=== PATIENT | female | born 2000 | race Caucasian/White ===

== ENCOUNTER 2019-06-09 20:18 | Outpatient (CLI) | payer BC, OTHER ==
[2019-06-09 21:18] LABS: APPEARANCE,URINE SLIGHTLY-CLOUDY; BILIRUBIN,URINE NEGATIVE (NEGATIVE); COLOR,URINE YELLOW; GLUCOSE, URINE 50 mg/dL (NEGATIVE); KETONES,URINE NEGATIVE (NEGATIVE); LEUKOCYTE ESTERASE,URINE NEGATIVE (NEGATIVE); NITRITE,URINE NEGATIVE (NEGATIVE); PROTEIN,URINE NEGATIVE (NEGATIVE); URINE SPECIFIC GRAVITY 1.018; UROBILINOGEN,URINE NEGATIVE mg/dL (<2.0)
[2019-06-09 21:23] LABS: RBCS (WET MOUNT) NO RBCS SEEN; T.VAGINALIS (WET MOUNT) NO TRICHOMONAS SEEN; WBCS (WET MOUNT) NO WBCS SEEN; YEAST (WET MOUNT) NO YEAST SEEN
[2019-06-09 21:24] LABS: BACTERIA (WET MOUNT) 3+ BACTERIA SEEN
[2019-06-09 21:33] LABS: URINE AMPHETAMINES SCREEN NEGATIVE; URINE BARBITURATES SCREEN NEGATIVE; URINE BENZODIAZEPINES SCREEN NEGATIVE; URINE COCAINE SCREEN NEGATIVE; URINE MARIJUANA (THC) SCREEN NEGATIVE; URINE METHADONE SCREEN NEGATIVE; URINE PHENCYCLIDINE SCREEN NEGATIVE
--- NOTE | 2019-06-09 22:03 | RADIOLOGY REPORT (SQ) ---
US PELVIS EXAM DATE: 06/09/2019 12:00 AM CDT HISTORY: Evaluate cervical length and presentation. COMPARISON: None. TECHNIQUE: Grayscale, color Doppler, and spectral Doppler ultrasound images of the pelvis were obtained. FINDINGS: There is a single live intrauterine fetus in vertex position with a heart rate of 162 bpm. The cervix measures 3.5 cm and is closed. DUY is 14.4 cm. Placenta is posterior. Estimated gestational age is 24 weeks 6 days. IMPRESSION: Single live IUP as above.
[2019-06-09 22:48] LABS: CHLAM PCR NOT DETECTED (NOT DETECT)
== END 2019-06-09 22:43 | disposition home or self-care (01) ==
LOC: LC 20:18
PROVIDERS: ATTEND Student in an Organized Health Care Education/Training Program
PROC: 4A1HXCZ Monitoring of Products of Conception, Cardiac Rate, External Approach (ICD-10-PCS; principal; 2019-06-09)
DX: O47.02 False labor before 37 completed weeks of gestation, second trimester (principal); Z3A.24 24 weeks gestation of pregnancy
CPT/HCPCS: 76815; 80307; 81005; 87210; 87491; 87591

== ENCOUNTER 2019-08-25 21:13 | Outpatient (CLI) | payer BC, OTHER ==
[2019-08-25 22:02] LABS: APPEARANCE,URINE SLIGHTLY-CLOUDY; BILIRUBIN,URINE NEGATIVE (NEGATIVE); COLOR,URINE STRAW; GLUCOSE, URINE >=500 mg/dL (NEGATIVE); KETONES,URINE TRACE mg/dL (NEGATIVE); LEUKOCYTE ESTERASE,URINE SMALL (NEGATIVE); NITRITE,URINE NEGATIVE (NEGATIVE); PROTEIN,URINE NEGATIVE (NEGATIVE); URINE SPECIFIC GRAVITY 1.007; UROBILINOGEN,URINE NEGATIVE mg/dL (<2.0)
[2019-08-25 22:12] LABS: URINE BARBITURATES SCREEN NEGATIVE; URINE BENZODIAZEPINES SCREEN NEGATIVE; URINE COCAINE SCREEN NEGATIVE; URINE MARIJUANA (THC) SCREEN NEGATIVE; URINE METHADONE SCREEN NEGATIVE; URINE PHENCYCLIDINE SCREEN NEGATIVE
[2019-08-25 22:15] LABS: URINE AMPHETAMINES SCREEN NEGATIVE
[2019-08-25] MEDS ORDERED: ONDANSETRON 4 MG TAB.RAPDIS ONE (22:26)
[2019-08-25] MEDS ORDERED: HYDROXYZINE PAMOATE 50 MG CAPSULE ONE (22:26)
[2019-08-25] MEDS ORDERED: ONDANSETRON 4 MG TAB.RAPDIS PO ONE (23:00)
[2019-08-25] MEDS ORDERED: HYDROXYZINE PAMOATE 50 MG CAPSULE PO ONE (23:00)
--- NOTE | 2019-08-25 23:21 | Non Stress Test Report ---
Non Stress Test Datetime Report Generated by CPN: 08/25/2019 23:20 DEMOGRAPHIC EGA NST: 35.2 INDICATION Indication for Study (NST) Other: labor check URINE RESULTS Urine Protein, NST: Negative Urine Ketones - NST: Positive Urine Glucose - NST: Positive Urine Blood - NST: Negative MONITORING Monitor Explained: Monitor Explained; Test Explained; Patient Verbalized Understanding Time on Monitor: 08/25/2019 21:31 Time off Monitor: 08/25/2019 23:10 NST Duration: 99 NST INTERVENTIONS NST Interventions: PO Hydration Physician Notified NST: Pryor BABY A: [id number] BABY A Movement : Present Contraction Frequency : 6-110 FHR Baseline : 125 Accelerations : 15X15 Decelerations : None Variability : Moderate 6-25bpm NST Review: Meets Criteria for Reactive NST NST Review and Verified By : Butch Alvarado RN NST Results: Reactive NST REPORT Report Trigger: Send Report
== END 2019-08-25 23:14 | disposition home or self-care (01) ==
LOC: LC 21:13
PROVIDERS: ATTEND Obstetrics & Gynecology
PROC: 4A1HXCZ Monitoring of Products of Conception, Cardiac Rate, External Approach (ICD-10-PCS; principal; 2019-08-25)
DX: O47.03 False labor before 37 completed weeks of gestation, third trimester (principal); Z3A.35 35 weeks gestation of pregnancy
CPT/HCPCS: 59025; 81001; 80307; S0119

== ENCOUNTER 2019-09-10 18:29 | Outpatient (CLI) | payer BC, OTHER ==
[2019-09-10 19:11] LABS: APPEARANCE,URINE SLIGHTLY-CLOUDY; BILIRUBIN,URINE NEGATIVE (NEGATIVE); COLOR,URINE YELLOW; GLUCOSE, URINE >=500 mg/dL (NEGATIVE); KETONES,URINE 20 mg/dL (NEGATIVE); LEUKOCYTE ESTERASE,URINE NEGATIVE (NEGATIVE); NITRITE,URINE NEGATIVE (NEGATIVE); PROTEIN,URINE NEGATIVE (NEGATIVE); UROBILINOGEN,URINE NEGATIVE mg/dL (<2.0)
--- NOTE | 2019-09-10 20:19 | Non Stress Test Report ---
Non Stress Test Datetime Report Generated by CPN: 09/10/2019 20:19 DEMOGRAPHIC EGA NST: 37.4 INDICATION Indication for Study (NST) Other: Labor Check IUP @ 37.4 MONITORING Monitor Explained: Monitor Explained; Test Explained; Patient Verbalized Understanding Time on Monitor: 09/10/2019 18:52 Time off Monitor: 09/10/2019 19:12 NST Duration: 20 NST INTERVENTIONS NST Interventions: PO Hydration Physician Notified NST: Dr. Kahn BABY A: [id number] BABY A Movement : Present Contraction Frequency : Irregular FHR Baseline : 135 Accelerations : 15X15 Decelerations : None Variability : Moderate 6-25bpm NST Review: Meets Criteria for Reactive NST NST Review and Verified By : Sidra Cruz RN NST Results: Reactive NST REPORT Report Trigger: Send Report
[2019-09-10 20:20] LABS: URINE AMPHETAMINES SCREEN NEGATIVE; URINE BARBITURATES SCREEN NEGATIVE; URINE BENZODIAZEPINES SCREEN NEGATIVE; URINE COCAINE SCREEN NEGATIVE; URINE MARIJUANA (THC) SCREEN NEGATIVE; URINE METHADONE SCREEN NEGATIVE; URINE PHENCYCLIDINE SCREEN NEGATIVE
== END 2019-09-10 20:20 | disposition home or self-care (01) ==
LOC: LC 18:29
PROVIDERS: ATTEND Obstetrics & Gynecology
PROC: 4A1HXCZ Monitoring of Products of Conception, Cardiac Rate, External Approach (ICD-10-PCS; principal; 2019-09-10)
DX: O47.1 False labor at or after 37 completed weeks of gestation (principal); Z3A.37 37 weeks gestation of pregnancy
CPT/HCPCS: 59025; 80307; 81005; 84112

== ENCOUNTER 2019-09-12 19:21 | Outpatient (CLI) | payer BC, OTHER ==
[2019-09-12 19:57] LABS: APPEARANCE,URINE CLEAR; BILIRUBIN,URINE NEGATIVE (NEGATIVE); COLOR,URINE STRAW; GLUCOSE, URINE 50 mg/dL (NEGATIVE); KETONES,URINE NEGATIVE (NEGATIVE); LEUKOCYTE ESTERASE,URINE NEGATIVE (NEGATIVE); NITRITE,URINE NEGATIVE (NEGATIVE); PROTEIN,URINE NEGATIVE (NEGATIVE); URINE SPECIFIC GRAVITY 1.008; UROBILINOGEN,URINE NEGATIVE mg/dL (<2.0)
[2019-09-12 20:21] LABS: URINE AMPHETAMINES SCREEN NEGATIVE; URINE BARBITURATES SCREEN NEGATIVE; URINE BENZODIAZEPINES SCREEN NEGATIVE; URINE COCAINE SCREEN NEGATIVE; URINE MARIJUANA (THC) SCREEN NEGATIVE; URINE METHADONE SCREEN NEGATIVE; URINE PHENCYCLIDINE SCREEN NEGATIVE
--- NOTE | 2019-09-12 21:42 | Non Stress Test Report ---
Non Stress Test Datetime Report Generated by CPN: 09/12/2019 21:42 DEMOGRAPHIC EGA NST: 37.6 INDICATION Indication for Study (NST) Other: Labor check MONITORING Monitor Explained: Monitor Explained; Test Explained; Patient Verbalized Understanding Time on Monitor: 09/12/2019 20:10 Time off Monitor: 09/12/2019 20:40 NST Duration: 30 NST INTERVENTIONS NST Interventions: PO Hydration Physician Notified NST: Dr. Younger BABY A: [id number] BABY A Movement : Present Contraction Frequency : irr FHR Baseline : 135 Accelerations : 15X15 Decelerations : None Variability : Moderate 6-25bpm NST Review: Meets Criteria for Reactive NST NST Review and Verified By : BECCA Thorne NST Results: Reactive NST REPORT Report Trigger: Send Report
== END 2019-09-12 21:34 | disposition home or self-care (01) ==
LOC: LC 19:21
PROVIDERS: ATTEND Obstetrics & Gynecology
PROC: 4A1HXCZ Monitoring of Products of Conception, Cardiac Rate, External Approach (ICD-10-PCS; principal; 2019-09-12)
DX: O47.1 False labor at or after 37 completed weeks of gestation (principal); Z3A.37 37 weeks gestation of pregnancy
CPT/HCPCS: 59025; 81005; 80307; 84112; Q0114

== ENCOUNTER 2019-09-21 08:03 | Inpatient (IN) | payer BC, OTHER ==
[2019-09-21 09:03] LABS: APPEARANCE,URINE CLEAR; BILIRUBIN,URINE NEGATIVE (NEGATIVE); COLOR,URINE YELLOW; GLUCOSE, URINE NEGATIVE (NEGATIVE); KETONES,URINE NEGATIVE (NEGATIVE); LEUKOCYTE ESTERASE,URINE NEGATIVE (NEGATIVE); NITRITE,URINE NEGATIVE (NEGATIVE); PROTEIN,URINE NEGATIVE (NEGATIVE); URINE SPECIFIC GRAVITY 1.012; UROBILINOGEN,URINE NEGATIVE mg/dL (<2.0)
[2019-09-21] MEDS ORDERED: RINGERS SOLUTION,LACTATED 1,000 ML IV ONE (09:13)
[2019-09-21 09:22] LABS: URINE AMPHETAMINES SCREEN NEGATIVE; URINE BARBITURATES SCREEN NEGATIVE; URINE BENZODIAZEPINES SCREEN NEGATIVE; URINE COCAINE SCREEN NEGATIVE; URINE MARIJUANA (THC) SCREEN NEGATIVE; URINE METHADONE SCREEN NEGATIVE; URINE PHENCYCLIDINE SCREEN NEGATIVE
[2019-09-21 10:30] LABS: ABSOLUTE LYMPHOCYTES (AUTO) 1.2 10^3/uL (0.5-4.7); ABSOLUTE MONOCYTES (AUTO) 0.8 10^3/uL (0.1-1.4); ABSOLUTE NEUT (AUTO) 10.4 10^3/uL (1.7-8.2); BASOPHILS % (AUTO) 0.4 % (0-2); EOSINOPHILS % (AUTO) 0.3 % (0-6); HEMATOCRIT 33.5 % (36.0-47.0); LYMPHOCYTES % (AUTO) 9.9 % (13-45); MEAN CORPUSCULAR HGB CONC 32.7 g/dL (32.0-36.0); MEAN CORPUSCULAR VOLUME 79 fl (80-97); MONOCYTES % (AUTO) 6.3 % (3-13); PLATELET COUNT 276 10^3/uL (150-450); RED BLOOD COUNT 4.22 10^6/uL (3.72-5.28); RED CELL DISTRIBUTION WIDTH 17.4 % (11.5-14.0); SEGMENTED NEUTROPHILS % (AUTO) 83.1 % (42-78); TOTAL CELLS COUNTED % (AUTO) 100 %; WHITE BLOOD COUNT 12.5 10^3/uL (4.0-10.5)
--- NOTE | 2019-09-21 13:11 | Admission Physical ---
Datetime Report Generated by CPN: 09/21/2019 13:11 CURRENT ADMISSION Chief Complaint: Uterine Contractions; Suspected Ruptured Membranes Indication for Induction: Not Applicable Admit Impression : Term, Intrauterine ; Ruptured Membranes Admit Impression- Other: early labor Admit Plan: Admit to Unit; Initiate Labor Protocol ALLERGIES Medication Allergies: No Medication Allergies: No Known Allergies (09/12/2019) Latex: No Latex Allergies Food Allergies: cinnamon Environmental Allergies: n/a OBSTETRICAL HISTORY EDC: 09/27/2019 00:00 : 1 Para: 0 Term: 0 : 0 SAB: 0 IAB: 0 Ectopic: 0 Livin Cesareans: 0 VBACs: 0 Multiple Births: 0 Gestational Diabetes: No Rh Sensitization: No Incompetent Cervix: No JANNIE: No Infertility: No ART Treatment: No Uterine Anomaly: No IUGR: No Hx Previous C/S: No Macrosomia: No Hx Loss/Stillborn: No PIH: No Hx : No Placenta Previa/Abruption: No Depression/PP Depression: No PTL/PROM: No Post Hemorrhage: No Current Procedures: Ultrasound Obstetrical History Comments: g1 - current SEE RECORDS Alcohol: No Marijuana : No Cocaine: No Other Illicit Drugs: No Cigarettes: Former Smoker. [id number] MEDICAL HISTORY Diabetes: No Blood Transfusion: No Pulmonary Disease (Asthma, TB): No Breast Disease: No Hypertension: No Bulk Pigment Reducer Surgery: No Heart Disease: No Hosp/Surgery: No Autoimmune Disorder: No Anesthetic Complications: No Kidney Disease: No Abnormal Pap Smear: No Neuro/Epilepsy: No Psychiatric Disorders: No Other Medical Diseases: No Hepatitis/Liver Disease: No Significant Family History: No Varicosities/Phlebitis: No Trauma/Violence : No Thyroid Dysfunction: No INFECTIOUS HISTORY Gonorrhea: No Genital Herpes: No Chlamydia: No Tuberculosis: No Syphilis: No Hepatitis: No HIV/AIDS Exposure: No Rash or Viral Illness: No HPV: No PHYSICAL EXAM General: Normal HEENT: Normal Neurologic: Normal Thyroid: Deferred Heart: Normal Lungs: Normal Breast: Deferred Back: Normal Abdomen: Normal Genitourinary Exam: Normal Extremities: Normal DTRs: Deferred Pelvic Type: Adequate Vital Signs: Reviewed; Within Normal Limits VAGINAL EXAM Dilatation: 1 Effacement: 75 Contraction Comments: q4mins MEMBRANES Pooling: Negative Membranes: Ruptured Amniotic Fluid Color: Clear FETUS A EGA: 39.1 Monitoring: External US FHR- Baseline: 135 Variability: Moderate 6-25bpm Accelerations: 15X15 Decelerations: None FHR Category: Category I Estimated Weight (gm): 3400 Presentation: Vertex Admit Comment: presents with c/o LOF and UC. actim prom positive. Admitted for early labor. GBS negative. P:routine labor care, anticipate PLANS FOR LABOR AND DELIVERY Labor and Delivery: None Pain Management: Epidural Feeding Preference: Formula Benefit of Breast Feed Discussed: Yes Circumcision: Yes INFORMED CONSENT Assignment: Soni Pryor MD Signature: with User ID: [email or web address] : with User ID: [email or web address]
[2019-09-21] MEDS ORDERED: OXYTOCIN/NORMAL SALINE 20 UNIT/1,000 ML RTUINJ IV PRN (17:34)
[2019-09-21] MEDS ORDERED: OXYTOCIN 10 UNIT/ML VIAL ONE (17:43)
[2019-09-21] MEDS ORDERED: OXYTOCIN/NORMAL SALINE 20 UNIT/1,000 ML RTUINJ ONE (17:43)
[2019-09-21] MEDS ORDERED: MISOPROSTOL 0.2 MG TABLET ONE (17:43)
[2019-09-21] MEDS ORDERED: LIDOCAINE 1% INJ-PF (10 MG/ML) 30 ML SDV ONE (17:43)
[2019-09-21] MEDS ORDERED: PHENYLEPHRINE HCL INJ/PF 10 MG/1 ML SDV ONE (18:06)
[2019-09-21] MEDS ORDERED: FENTANYL/BUPIVACAINE/NS/PF 300 MCG/150 ML RTUINJ EPI ONE (18:07)
[2019-09-21] MEDS ORDERED: BUPIVACAINE HCL 0.25 % INJ/PF (2.5 MG/1 ML) 30 ML VIAL ONE (18:07)
[2019-09-21] MEDS ORDERED: FENTANYL CITRATE INJ/PF 100 MCG/2 ML AMPUL ONE (18:07)
[2019-09-21] MEDS ORDERED: EPHEDRINE SULFATE INJ 50 MG/1 ML AMPULE ONE (18:07)
[2019-09-21] MEDS ORDERED: PROMETHAZINE HCL INJ 25 MG/1 ML VIAL IV ONE (20:56)
[2019-09-21] MEDS ORDERED: PROMETHAZINE HCL INJ 25 MG/1 ML VIAL ONE (20:59)
[2019-09-21] MEDS ORDERED: LIDOCAINE 1.5%/EPINEPHRINE INJ 5 ML AMP ONE (22:24)
[2019-09-21] MEDS ORDERED: SODIUM BICARBONATE 8.4% INJ 50 MEQ/50 ML DISP.SYRIN ONE (22:24)
[2019-09-21] MEDS ORDERED: LIDOCAINE 2%/EPINEPHRINE INJ 20 ML VIAL ONE (22:25)
[2019-09-22] MEDS ORDERED: ACETAMINOPHEN 325 MG TABLET ONE (00:10)
[2019-09-22] MEDS ORDERED: AMPICILLIN SOD INJ 2 GM VIAL ONE ×3 (00:10→09:04)
[2019-09-22] MEDS ORDERED: ACETAMINOPHEN 325 MG TABLET PO ONE (00:15)
[2019-09-22] MEDS: AMPICILLIN SOD INJ 2 GM VIAL IV SCH ×2 (00:20→06:22)
[2019-09-22] MEDS ORDERED: LIDOCAINE 1.5%/EPINEPHRINE INJ 5 ML AMP ONE (01:12)
[2019-09-22] MEDS ORDERED: SODIUM BICARBONATE 8.4% INJ 50 MEQ/50 ML DISP.SYRIN ONE (01:12)
[2019-09-22] MEDS ORDERED: MORPHINE SULFATE 10 MG/ML INJ ONE (02:06)
[2019-09-22] MEDS: MORPHINE SULFATE 10 MG/ML INJ IV ONE ×2 (02:18→05:25)
[2019-09-22] MEDS ORDERED: ACETAMINOPHEN WITH CODEINE #3 TABLET ONE (03:54)
[2019-09-22] MEDS ORDERED: ZOLPIDEM TARTRATE 5 MG TABLET PO PRN (03:58)
[2019-09-22] MEDS ORDERED: PSEUDOEPHEDRINE HCL 30 MG TABLET PO PRN (03:58)
[2019-09-22] MEDS ORDERED: BENZOCAINE/MENTHOL AEROSOL SPRAY 56 ML TOP PRN (03:58)
[2019-09-22] MEDS ORDERED: GLYCERIN/WITCH HAZEL LEAF 1 EACH MED..WIPE TP PRN (03:58)
[2019-09-22] MEDS ORDERED: ACETAMINOPHEN WITH CODEINE #3 TABLET PO PRN ×2 (03:58)
[2019-09-22] MEDS ORDERED: MEASLES,MUMPS&RUBELLA VACC/PF 0.5 ML VIAL SUBCUT PRN (03:58)
[2019-09-22] MEDS ORDERED: PROMETHAZINE HCL INJ 25 MG/1 ML VIAL IV PRN (03:58)
[2019-09-22] MEDS ORDERED: OXYTOCIN/NORMAL SALINE 20 UNIT/1,000 ML RTUINJ IV PRN (03:58)
[2019-09-22] MEDS ORDERED: DIPH/PERTUSS(ACELL)/TETANUS VAC/PF 0.5 ML SYR (>=10YO) IM PRN (03:58)
[2019-09-22] MEDS ORDERED: NA PHOS,M-B/NA PHOS,DI-BA (ADULT) 133 ML ENEMA PR PRN (03:58)
[2019-09-22] MEDS ORDERED: ACETAMINOPHEN 650 MG SUPP.RECT PR PRN (03:58)
[2019-09-22] MEDS ORDERED: PROMETHAZINE HCL 25 MG SUPP.RECT PR PRN (03:58)
[2019-09-22] MEDS ORDERED: MAGNESIUM HYDROXIDE SUSP 30 ML UDCUP PO PRN (03:58)
[2019-09-22] MEDS ORDERED: PROMETHAZINE HCL 25 MG TABLET PO PRN (03:58)
[2019-09-22] MEDS ORDERED: DIPHENHYDRAMINE HCL 25 MG CAPSULE PO PRN (03:58)
[2019-09-22] MEDS ORDERED: DIBUCAINE 1% OINTMENT 28 GM TP PRN (03:58)
[2019-09-22] MEDS: IBUPROFEN 800 MG TABLET PO SCH ×4 (05:26→21:19)
[2019-09-22] MEDS ORDERED: IBUPROFEN 800 MG TABLET ONE (05:28)
--- NOTE | 2019-09-22 05:57 | Delivery Summary ---
Del Sum A-C Datetime Report Generated by CPN: 09/22/2019 05:57 DELIVERY PERSONNEL DELIVERY PERSONNEL: [id number] Delivery Doctor:: Soni Pryor MD Labor and Delivery Nurse:: Shira Gonsales RNassembling machine operator Nurse:: Aida Hays RN Legal Associate/STEEL FABRICATING SUPERVISOR: Sonam Guthrie, PHLEBOTOMY TECHNOLOGIST MATERNAL INFORMATION Delivery Anesthesia: Epidural Medications After Delivery: Pitocin Bolus-Please Comment; Cytotec 1000mcg Per Rectum/Vagina Meds After Delivery Comment: pitocin 20 units in 1000 ml NSS Estimated Blood Loss (ml): 400 Delivery QBL: 400 Maternal Complications: Premature Rupture of Membranes Provider Comments: Called to patients room as she was completely dilated and Plus 2 station. Patient pushed through approximately 15 minutes of contractions and a viable male infant was born. After delivery of the head in direct OA, a nuchal cord x1 was noted. It was too snug to reduce and infant was delivered through. After the head the shoulders and rest of the body followed easily. COrd clamping delayed 30 seconds as was vigorous. COrd doubly clamped and cut. to mothers chest. SOme uterine atony just after delivery of the placenta. Fundal massage and cytotec done. FIrm and bleeding stopped. LABOR SUMMARY EDC: 09/27/2019 00:00 No. Babies in Womb: 1 Attempted: No Labor Anesthesia: Epidural LABOR INFORMATION Reason for Induction: Not Applicable Onset of Labor: 09/21/2019 17:58 Complete Dilatation: 09/22/2019 02:28 Oxytocin: Augmentation Group B Beta Strep: negative Antibiotics # of Doses: 1 Antibiotics Time of Last Dose: 0020 Name of Antibiotic Given: ampicillin Steroids Given: None Reason Steroids Not Administered: Not Applicable MEMBRANES Membranes Rupture Method: Spontaneous Rupture of Membranes: 09/21/2019 05:00 Length of Rupture (hr): 22.40 Amniotic Fluid Color: Clear Amniotic Fluid Amount: Small Amniotic Fluid Odor: Normal STAGES OF LABOR Stage 1 hr: 8 Stage 1 min: 30 Stage 2 hr: 0 Stage 2 min: 56 Stage 3 hr: 0 Stage 3 min: 4 Total Time in Labor hr: 9 Total Time in Labor min: 30 VAGINAL DELIVERY Episiotomy: None Laceration #1: Perineal Laceration Extension #1: Second Degree Laceration Repair: Yes Laceration Repair Note: Repair with 2--0 chromic in a layered fashion Sponge Count Correct: Yes Sharps Count Correct: Yes CSECTION DELIVERY Primary Indication: N/A Secondary Indication: N/A CSection Incidence: N/A Labor: N/A Elective: N/A CSection Incision: N/A BABY A INFORMATION Infant Delivery Date/Time: 09/22/2019 03:24 Method of Delivery: Vaginal Nurse Controlled Delivery: No Born in Route : No : N/A Forceps: N/A Vacuum Extraction: N/A Shoulder Dystocia : No PRESENTATION/POSITION BABY A Presentation: Cephalic Cephalic Presentation: Vertex Vertex Position: direct OA Breech Presentation: N/A PLACENTA INFORMATION BABY A Placenta Delivery Time : 09/22/2019 03:28 Placenta Method of Delivery: Spontaneous Placenta Status: Delivered SCORES BABY A Heart Rate 1 min: >100 bpm Resp Effort 1 min: Slow, Irregular Reflex Irritability 1 min: Cough or Sneeze or Pulls Away Muscle Tone 1 min: Active Motion Color 1 min: Blue/Pale Resuscitation Effort 1 min: Tactile Stimulation SCORE 1 MIN: 7 Heart Rate 5 min: >100 bpm Resp Effort 5 min: Slow, Irregular Reflex Irritability 5 min: Cough or Sneeze or Pulls Away Muscle Tone 5 min: Active Motion Color 5 min: Body Terral, Extremities Blue Resuscitation Effort 5 min: Tactile Stimulation SCORE 5 MIN: 8 INFORMATION BABY A Gestational Age at Delivery: 39.2 Gestational Status: Full Term- 39- 40.6 Weeks Outcome : Liveborn Condition : Stable Infant Sex: Male IDENTIFICATION BABY A Infant Verification Date/Time: 09/22/2019 03:36 ID Band Number: [id number] Mother's Name Verified: Yes RN Verifying Infant: J, RN and A.Frankman, RN WEIGHT/LENGTH BABY A Infant Birthweight (gm): 3595 Weight (lb): 7 Weight (oz): 15 Length (in): 21.50 Infant Length (cm): 54.61 CORD INFORMATION BABY A No. Cord Vessels: 3 Nuchal Cord : Around Neck x1, Loose Cord Blood Taken: Yes-For Storage (Mom's Blood type +) Suction: Mouth; Pharynx ASSESSMENT BABY A Complications: None Physical Findings at Delivery: Caput Succedaneum; Molding of the Head Infant Respirations: Grunting; Intercostal Retractions; Nasal Flaring Skin to Skin: Yes Skin to Skin Time (min): 5 Bicycle Messenger/ALS Called : No Care By: Laney Hays RN Transferred To: NICU BABY B INFORMATION : N/A SIGNATURES Signature: with User ID: Judith : with User ID: [email or web address] : I was personally available for consultation and serving as supervising physician for the MLP.
[2019-09-22] MEDS: SENNOSIDES/DOCUSATE 8.6-50 MG 1 EACH TABLET PO SCH (11:06)
[2019-09-22] MEDS: DOCUSATE SODIUM 100 MG CAPSULE PO SCH ×2 (11:06→17:18)
[2019-09-22] MEDS: PRENATAL VITAMIN W DHA CAPSULE PO SCH (11:06)
[2019-09-22] MEDS: FERROUS SULFATE 325 MG TABLET PO SCH ×2 (11:07→17:18)
[2019-09-22] MEDS: FAMOTIDINE 20 MG TABLET PO SCH ×2 (11:07→21:19)
[2019-09-22] MEDS: AMPICILLIN SODIUM 2 GM in NORMAL SALINE 100 ML IV SCH ×3 (13:27→23:03)
[2019-09-23] MEDS: IBUPROFEN 800 MG TABLET PO SCH (06:12)
[2019-09-23] MEDS: AMPICILLIN SODIUM 2 GM in NORMAL SALINE 100 ML IV SCH (06:19)
[2019-09-23 07:55] LABS: HEMATOCRIT 27.1 % (36.0-47.0); MEAN CORPUSCULAR HEMOGLOBIN 26.2 pg (27.0-33.4); MEAN CORPUSCULAR VOLUME 79 fl (80-97); PLATELET COUNT 201 10^3/uL (150-450); RED BLOOD COUNT 3.41 10^6/uL (3.72-5.28); RED CELL DISTRIBUTION WIDTH 17.2 % (11.5-14.0); WHITE BLOOD COUNT 10.8 10^3/uL (4.0-10.5)
[2019-09-23 08:12] LABS: HEMOGLOBIN 8.9 g/dL (12.0-15.5)
[2019-09-23] MEDS: FERROUS SULFATE 325 MG TABLET PO SCH (09:19)
[2019-09-23] MEDS: FAMOTIDINE 20 MG TABLET PO SCH (09:19)
[2019-09-23] MEDS: PRENATAL VITAMIN W DHA CAPSULE PO SCH (09:19)
[2019-09-23] MEDS: DOCUSATE SODIUM 100 MG CAPSULE PO SCH (09:19)
[2019-09-23] MEDS: SENNOSIDES/DOCUSATE 8.6-50 MG 1 EACH TABLET PO SCH (09:22)
--- NOTE | 2019-09-23 11:25 | PDOC DISCHARGE SUMMARY ---
Impression - Admit/DC Date/PCP Admission Date/Primary Care Provider: 09/21/19 09:06 NOVA VITALE DO Discharge Date: 09/23/19 - Discharge Diagnosis (1) Normal vaginal delivery Is this a current diagnosis for this admission?: Yes (2) spontaneous labor with term delivery Is this a current diagnosis for this admission?: Yes (3) Obstetrical laceration, second degree Is this a current diagnosis for this admission?: Yes - Additional Information Discharge Diet: Regular Discharge Activity: Balance Activity w/Rest, Pelvic Rest Referrals: NOVA PANDEY DO [Primary Care Provider] - Prescriptions: Ibuprofen [Motrin 800 mg Tablet] 800 mg PO Q8HP PRN #90 tablet PRN Reason: Home Medications: Pnv No.95/Ferrous Fum/Folic AC [ Multivitamin Tablet] 1 each PO DAILY 06/09/19 Ibuprofen [Motrin 800 mg Tablet] 800 mg PO Q8HP PRN #90 tablet 09/23/19 HPI Gestational Age: 39+1 Reason(s) for Admission: Onset of Labor Procedures: NST Intrapartum Procedure(s): Spontaneous Vaginal Delivery Complication(s): Laceration-Perineal Laceration-Degree: 2nd Results Laboratory Results: WBC 10.8 10^3/uL (4.0-10.5) H 09/23/19 07:32 RBC 3.41 10^6/uL (3.72-5.28) L 09/23/19 07:32 Hgb 8.9 g/dL (12.0-15.5) L D 09/23/19 07:32 Hct 27.1 % (36.0-47.0) L 09/23/19 07:32 MCV 79 fl (80-97) L 09/23/19 07:32 MCH 26.2 pg (27.0-33.4) L 09/23/19 07:32 MCHC 33.0 g/dL (32.0-36.0) 09/23/19 07:32 RDW 17.2 % (11.5-14.0) H 09/23/19 07:32 Plt Count 201 10^3/uL (150-450) 09/23/19 07:32 Lymph % (Auto) 9.9 % (13-45) L 09/21/19 10:15 Placer % (Auto) 6.3 % (3-13) 09/21/19 10:15 Eos % (Auto) 0.3 % (0-6) 09/21/19 10:15 Baso % (Auto) 0.4 % (0-2) 09/21/19 10:15 Absolute Neuts (auto) 10.4 10^3/uL (1.7-8.2) H 09/21/19 10:15 Absolute Lymphs (auto) 1.2 10^3/uL (0.5-4.7) 09/21/19 10:15 Absolute Monos (auto) 0.8 10^3/uL (0.1-1.4) 09/21/19 10:15 Absolute Eos (auto) 0.0 10^3/uL (0.0-0.6) 09/21/19 10:15 Absolute Basos (auto) 0.0 10^3/uL (0.0-0.2) 09/21/19 10:15 Seg Neutrophils % 83.1 % (42-78) H 09/21/19 10:15 Urine Color YELLOW 09/21/19 08:44 Urine Appearance CLEAR 09/21/19 08:44 Urine pH 7.0 (5.0-9.0) 09/21/19 08:44 Ur Specific [place] 1.012 09/21/19 08:44 Urine Protein NEGATIVE mg/dL (NEGATIVE) 09/21/19 08:44 Urine Glucose (UA) NEGATIVE mg/dL (NEGATIVE) 09/21/19 08:44 Urine Ketones NEGATIVE mg/dL (NEGATIVE) 09/21/19 08:44 Urine Blood MODERATE (NEGATIVE) H 09/21/19 08:44 Urine Nitrite NEGATIVE (NEGATIVE) 09/21/19 08:44 Urine Bilirubin NEGATIVE (NEGATIVE) 09/21/19 08:44 Urine Urobilinogen NEGATIVE mg/dL (<2.0) 09/21/19 08:44 Ur Leukocyte Esterase NEGATIVE (NEGATIVE) 09/21/19 08:44 Urine Ascorbic Acid NEGATIVE (NEGATIVE) 09/21/19 08:44 Membranes Rupture POSITIVE (NEGATIVE) H 09/21/19 08:39 Urine Opiates Screen NEGATIVE 09/21/19 08:44 Urine Methadone Screen NEGATIVE 09/21/19 08:44 Ur Barbiturates Screen NEGATIVE 09/21/19 08:44 Ur Phencyclidine Scrn NEGATIVE 09/21/19 08:44 Ur Amphetamines Screen NEGATIVE 09/21/19 08:44 U Benzodiazepines Scrn NEGATIVE 09/21/19 08:44 Urine Cocaine Screen NEGATIVE 09/21/19 08:44 U Marijuana (THC) Screen NEGATIVE 09/21/19 08:44 Blood Type O POSITIVE 09/21/19 10:15 Antibody Screen NEGATIVE 09/21/19 10:15 Plan Plan of Treatment: follow up at [facility] in 4 weeks for post check
[2019-09-23 11:32] VITALS: BP 122/59
== END 2019-09-23 13:05 | disposition home or self-care (01) | DRG 807 ==
LOC: LC 08:03 → LR 09:06 → 2S 09-22 10:39
PROVIDERS: ADMIT Obstetrics & Gynecology; ATTEND Obstetrics & Gynecology
PROC: 10E0XZZ Delivery of Products of Conception, External Approach (ICD-10-PCS; principal; 2019-09-22)
PROC: 0KQM0ZZ Repair Perineum Muscle, Open Approach (ICD-10-PCS; 2019-09-22)
DX: O42.92 Full-term premature rupture of membranes, unspecified as to length of time between rupture and onset of labor (principal); Z37.0 Single live birth; O69.81X0 Labor and delivery complicated by cord around neck, without compression, not applicable or unspecified; O70.1 Second degree perineal laceration during delivery; O62.2 Other uterine inertia; Z3A.39 39 weeks gestation of pregnancy; Z87.891 Personal history of nicotine dependence
CPT/HCPCS: 36415; 80307; 81005; 84112; 85025; 85027; 86592; 86850; 86900; 86901; 94760; J0290; J2270; J2370; J2550; J2590; J3010; J3490; J7050